=== PATIENT | female | born 1985 | race Caucasian/White ===

== ENCOUNTER 2020-12-22 12:11 | Inpatient (IN) | payer OTHER ==
[~2020-12-22] VITALS: Ht 162.6 cm; Wt 89.4 kg
[2020-12-25] MEDS ORDERED: LABETALOL HCL200 MG PO (19:59)
[2020-12-25] MEDS ORDERED: PRENATAL TABLE1 EAC1 PO (19:59)
[2020-12-25] MEDS ORDERED: IRON325 MG PO (19:59)
== END 2020-12-24 10:36 | disposition home or self-care (01) | DRG 833 ==
LOC: LDR 12:11
PROVIDERS: ADMIT Obstetrics & Gynecology; ATTEND Obstetrics & Gynecology
PROC: 4A1HXFZ Monitoring of Products of Conception, Cardiac Rhythm, External Approach (ICD-10-PCS; principal; 2020-12-22)
DX: O13.3 Gestational [pregnancy-induced] hypertension without significant proteinuria, third trimester (principal); O99.013 Anemia complicating pregnancy, third trimester; D64.9 Anemia, unspecified; Z3A.28 28 weeks gestation of pregnancy

== ENCOUNTER 2020-12-25 18:01 | Inpatient (IN) | payer OTHER ==
[~2020-12-25] VITALS: Ht 162.6 cm; Wt 0.5 kg
[2020-12-25] MEDS ORDERED: PRENATAL TABLE1 EAC1 PO (19:59)
[2020-12-25] MEDS ORDERED: LABETALOL HCL200 MG PO (19:59)
[2020-12-25] MEDS ORDERED: IRON325 MG PO (19:59)
== END 2020-12-29 17:51 | disposition home or self-care (01) | DRG 788 ==
LOC: LDR 18:01 → OB/GYN 12-26 10:13 → SURG-SUITE 12-27 09:49
PROVIDERS: ADMIT Obstetrics & Gynecology; ATTEND Obstetrics & Gynecology
PROC: 4A1HXFZ Monitoring of Products of Conception, Cardiac Rhythm, External Approach (ICD-10-PCS; 2020-12-25)
PROC: 10D00Z1 Extraction of Products of Conception, Low, Open Approach (ICD-10-PCS; principal; 2020-12-26 10:30)
DX: O14.14 Severe pre-eclampsia complicating childbirth (principal); O99.02 Anemia complicating childbirth; D64.9 Anemia, unspecified; Z3A.29 29 weeks gestation of pregnancy; Z37.0 Single live birth

== ENCOUNTER 2021-01-01 10:06 | Outpatient (CLI) | payer OTHER ==
[~2021-01-01 10:06] MED LIST: IRON325 MG PO; LABETALOL HCL200 MG PO; PRENATAL TABLE1 EAC1 PO
== END 2021-01-01 10:10 | disposition home or self-care (01) ==
LOC: LAB 10:06
DX: Z03.818 Encounter for observation for suspected exposure to other biological agents ruled out (principal)